=== PATIENT | female | born 1975 | race Hispanic/Latino ===

== ENCOUNTER 2018-01-03 11:23 | Emergency (ER) | payer SELFPAY ==
[2018-01-03 13:56] LABS: Absolute Lymphocytes (CBC) 1.3 K/uL (0.7-4.9); Absolute Monocytes 0.7 K/uL (0.1-1.3); Absolute Neutrophil 11.9 K/uL (1.8-8.0); Basophils % 0.4 % (0-1.3); Eosinophils % 0.8 % (0-4.4); Hematocrit 38.6 % (36.0-45.0); Lymphocytes % 9.5 % (15.3-44.8); MCH 29.7 pg (27.0-35.0); MCV 92.3 fL (80-100); MPV 9.5 fL (7.6-11.3); RBC Red Blood Cell Count 4.19 M/uL (3.86-4.86)
[2018-01-03 14:14] LABS: Urine Bacteria <20 /HPF (<20); Urine Culture Reflex Order NOT NEEDED
[2018-01-03 14:15] LABS: Urine Blood 3+ (NEG); Urine Glucose NEGATIVE (NEG); Urine Protein 1+ (NEG); Urine Specific Gravity 1.015 (1.005-1.030)
[2018-01-03 14:15] LABS: Urine Mucus 1+ /HPF (NONE SEEN)
[2018-01-03 14:41] LABS: Potassium 3.9 mmol/L (3.5-5.1)
--- NOTE | 2018-01-03 17:33 | RAD REPORT ---
EXAM DESCRIPTION: US - Transvaginal OB - 01/03/2018 4:34 pm CLINICAL HISTORY: Vaginal bleeding, possible COMPARISON: None. TECHNIQUE: Endovaginal sonography performed. FINDINGS: Uterus is 10.8 x 5.6 x 6.9 cm. Myometrium is diffusely heterogeneous. A 2.5 centimeter ant erior fundal fibroid is present. An additional anterior fibroid seen 15 mm in size. In the fundal portion of the endometrial cavity there is a small oval hypoechoic or cystic collection . Average diameter would correspond to a 5 week or less intrauterine gestation. Within this structure there is no yolk sac or pole. There is an overall heterogeneity throughout the endometrium alexia pected to be hemorrhagic material. An 18 millimeter thin-walled anechoic right ovarian cyst is present. No suspicious right ovarian or r ight adnexal finding. Left ovary is closely approximated to the uterus. No dominant solid or cystic m ass. IMPRESSION: Small oval fluid collection in the fundal endometrial cavity could be a 5 week 0 day siz ed IUP. No yolk sac or pole identifiable. Overall heterogeneity of the endometrium. This is believed to be hemorrhagic material and this is pro bably places any at-risk. No suspicious ovarian or adnexal finding. Follow-up endovaginal sonography could be performed if beta HCG serial studies show ongoing .
--- NOTE | 2018-01-03 17:39 | EDPHYS ---
Physician Documentation [facility] Name: Bri Bell Age: 42 yrs Sex: Female : 1975 Arrival Date: 01/03/2018 Time: 11:27 Bed 7 Private MD: None, None ED Physician Anshu Cheatham HPI: 01/03 13:50 This 42 yrs old Female presents to ER via Ambulatory with complaints of 5wks pm1 , vaginal bleeding. 13:50 The patient presents with vaginal bleeding that is light, with clots. Onset: The pm1 symptoms/episode began/occurred 2 day(s) ago. Modifying factors: The symptoms are alleviated by nothing, the symptoms are aggravated by using the bathroom, sitting down urinating increases the amount of bleeding. Associated signs and symptoms: Pertinent positives: cramping, Pertinent negatives: dysuria, fever, nausea, vomiting. The patient has not experienced similar symptoms in the past. 13:50 Patient showed me her ultrasound from yesterday that showed IUP without pole or pm1 yolk sac. 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 - Social history:: Smoking status: Patient/guardian denies using tobacco. - Ebola Screening: : Patient negative for fever greater than or equal to 101.5 degrees Fahrenheit, and additional compatible Ebola Virus Disease symptoms Patient denies exposure to infectious person Patient denies travel to an Ebola-affected area in the 21 days before illness onset No symptoms or risks identified at this time. ROS: 13:50 Positive for vaginal bleeding. pm1 13:50 Constitutional: Negative for fever, chills, and weight loss, Eyes: Negative for injury, pain, redness, and discharge, ENT: Negative for injury, pain, and discharge, Neck: Negative for injury, pain, and swelling, Cardiovascular: Negative for chest pain, palpitations, and edema, Respiratory: Negative for shortness of breath, cough, wheezing, and pleuritic chest pain. 13:50 Back: Negative for injury and pain, MS/Extremity: Negative for injury and deformity, Skin: Negative for injury, rash, and discoloration, Neuro: Negative for headache, weakness, numbness, tingling, and seizure. 13:50 Abdomen/GI: Positive for abdominal pain, of the suprapubic area. Exam: 13:50 Constitutional: This is a well developed, well nourished patient who is awake, alert, pm1 and in no acute distress. Head/Face: Normocephalic, atraumatic. Chest/axilla: Normal chest wall appearance and motion. Nontender with no deformity. No lesions are appreciated. Cardiovascular: Regular rate and rhythm with a normal S1 and S2. No gallops, murmurs, or rubs. No pulse deficits. Respiratory: Lungs have equal breath sounds bilaterally, clear to auscultation and percussion. No rales, rhonchi or wheezes noted. No increased work of breathing, no retractions or nasal flaring. Abdomen/GI: Soft, non-tender, with normal bowel sounds. No distension or tympany. No guarding or rebound. No evidence of tenderness throughout. Back: No spinal tenderness. No costovertebral tenderness. Full range of motion. Skin: Warm, dry with normal turgor. Normal color with no rashes, no lesions, and no evidence of cellulitis. MS/ Extremity: Pulses equal, no cyanosis. Neurovascular intact. Full, normal range of motion. 13:50 Neuro: Orientation: is normal, Motor: is normal, moves all fours. Vital Signs: 11:59 BP 102 / 53; Pulse 63; Resp 16; Temp 97.2(TE); Pulse Ox 100% ; Weight 89.81 kg; Height iw 5 ft. 4 in. (162.56 cm); Pain 5/10; 15:17 BP 101 / 54; Pulse 64; Resp 16; Pulse Ox 99% ; jl7 17:30 BP 103 / 52; Pulse 64; Resp 16; Pulse Ox 100% ; jl7 11:59 Body Mass Index 33.99 (89.81 kg, 162.56 cm) iw MDM: 12:42 Patient medically screened. pm1 17:12 Data reviewed: vital signs. Data interpreted: Pulse oximetry: on room air is 99 %. pm1 Interpretation: normal. 17:36 Counseling: I had a detailed discussion with the patient and/or guardian regarding: the pm1 historical points, exam findings, and any diagnostic results supporting the discharge/admit diagnosis, lab results, radiology results, the need for outpatient follow up, to return to the emergency department if symptoms worsen or persist or if there are any questions or concerns that arise at home. 01/03 12:05 Order name: Urine Culture sn 01/03 12:05 Order name: Urine Microscopic Only; Complete Time: 15:38 snw 01/03 12:51 Order name: Quantitative Hcg pm1 01/03 12:51 Order name: Abo/rh Typing pm1 01/03 12:51 Order name: Basic Metabolic Panel 1 01/03 12:51 Order name: CBC with Diff pm1 01/03 12:52 Order name: HCG, Quantitative; Complete Time: 15:38 EDMT 01/03 12:52 Order name: ABO/RH typing; Complete Time: 15:38 EDMS 01/03 12:52 Order name: Basic Metabolic Panel; Complete Time: 15:38 EDMT 01/03 12:52 Order name: CBC with Automated Diff; Complete Time: 15:38 EDMS 01/03 13:09 Order name: Urine Dipstick--Ancillary (enter results); Complete Time: 15:38 bd 01/03 13:09 Order name: Urine --Ancillary (enter results); Complete Time: 15:38 01/03 15:34 Order name: ABO/RH no charge; Complete Time: 15:38 EDMT 01/03 15:38 Order name: US Transvaginal Ob; Complete Time: 17:34 pm1 01/03 12:05 Order name: Urine Test (obtain specimen); Complete Time: 13:53 snw 01/03 12:05 Order name: Urine Dipstick-Ancillary (obtain specimen); Complete Time: 15:11 sn 01/03 12:51 Order name: IV Saline Lock; Complete Time: 13:52 pm1 01/03 12:51 Order name: Labs collected and sent; Complete Time: 13:52 pm1 01/03 12:51 Order name: NPO; Complete Time: 12:59 pm1 Administered Medications: No medications were administered Disposition: 01/04 16:14 Co-signature as Attending Physician, Anshu Cheatham MD I agree with the assessment and deondre plan of care. Disposition: 01/03/18 17:38 Discharged to Home. Impression: Threatened . - Condition is Stable. - Discharge Instructions: Threatened Miscarriage, Pelvic Rest. - Medication Reconciliation Form, Thank You Letter form. - Follow up: Emergency Department; When: As needed; Reason: Worsening of condition. Follow up: Lori Flood MD; When: 2 - 3 days; Reason: Recheck today's complaints, Continuance of care, Re-evaluation by your physician. Follow up: Ella Alexander MD; When: 2 - 3 days; Reason: Recheck today's complaints, Continuance of care, Re-evaluation by your physician. - Problem is new. - Symptoms have improved. Signatures: Dispatcher [employer] EDMS Anshu Cheatham MD MD cha Therrien, Shelly, VISION IMPAIRED TEACHER-C VISION IMPAIRED TEACHER-Csnw Janeth Lozano, RN LORI iw Iam Garcia, ZOILA DIRECTOR FINANCIAL SERVICES pm1 Rebecca Little RN RN jl7 Corrections: (The following items were deleted from the chart) 01/03 17:39 17:38 01/03/2018 17:38 Discharged to Home. Impression: Threatened . Condition pm1 is Stable. Forms are Medication Reconciliation Form, Thank You Letter, Antibiotic Education, Prescription Opioid Use. Follow up: Emergency Department; When: As needed; Reason: Worsening of condition. Follow up: Lori Flood; When: 2 - 3 days; Reason: Recheck today's complaints, Continuance of care, Re-evaluation by your physician. Problem is new. Symptoms have improved. pm1 18:07 17:39 01/03/2018 17:38 Discharged to Home. Impression: Threatened . Condition jl7 is Stable. Forms are Medication Reconciliation Form, Thank You Letter, Antibiotic Education, Prescription Opioid Use. Follow up: Emergency Department; When: As needed; Reason: Worsening of condition. Follow up: Ella Alexander; When: 2 - 3 days; Reason: Recheck today's complaints, Continuance of care, Re-evaluation by your physician. Problem is new. Symptoms have improved. pm1
--- NOTE | 2018-01-03 17:39 | ER ---
Nurse's Notes [facility] Name: Bri Bell Age: 42 yrs Sex: Female : 1975 Arrival Date: 01/03/2018 Time: 11:27 Bed 7 Private MD: None, None Diagnosis: Threatened Presentation: 01/03 11:55 Presenting complaint: Patient states: 5-7 weeks , vaginal bleeding started iw Thursday, had US done at clinic yesterday that showed embryo has not grown since previous US, bleeding increased and cramping started today. Transition of care: patient was not received from another setting of care. Onset of symptoms was January 03, 2018. Risk Assessment: Do you want to hurt yourself or someone else? Patient reports no desire to harm self or others. Initial Sepsis Screen: Does the patient meet any 2 criteria? No. Patient's initial sepsis screen is negative. Does the patient have a suspected source of infection? No. Patient's initial sepsis screen is negative. Care prior to arrival: None. 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 - Social history:: Smoking status: Patient/guardian denies using tobacco. - Ebola Screening: : Patient negative for fever greater than or equal to 101.5 degrees Fahrenheit, and additional compatible Ebola Virus Disease symptoms Patient denies exposure to infectious person Patient denies travel to an Ebola-affected area in the 21 days before illness onset No symptoms or risks identified at this time. Screenin:17 Abuse screen: Denies threats or abuse. Denies injuries from another. Nutritional jl7 screening: No deficits noted. Tuberculosis screening: No symptoms or risk factors identified. Fall Risk IV access (20 points). Total Cota Fall Scale indicates No Risk (0-24 pts). Assessment: 13:30 General: Appears in no apparent distress. uncomfortable, Behavior is calm, cooperative, jl7 appropriate for age. Pain: Complains of pain in right lower quadrant and left lower quadrant Pain does not radiate. Pain currently is 1 out of 10 on a pain scale. at worst was 10 out of 10 on a pain scale. Quality of pain is described as crampy, Pain began 1 day ago. Is intermittent. Neuro: Level of Consciousness is awake, alert, obeys commands, Oriented to person, place, time, situation. Cardiovascular: Patient's skin is warm and dry. Respiratory: Airway is patent Respiratory effort is even, unlabored, Respiratory pattern is regular, symmetrical. GI: Bowel sounds present X 4 quads. Abd is soft X 4 quads Abdomen is tender to palpation in right lower quadrant and left lower quadrant. : No signs and/or symptoms were reported regarding the genitourinary system. EENT: No signs and/or symptoms were reported regarding the EENT system. Derm: Skin is pink, warm \T\ dry. Musculoskeletal: No signs and/or symptoms reported regarding the musculoskeletal system. 14:30 Reassessment: No changes from previously documented assessment. Patient and/or family jl7 updated on plan of care and expected duration. Pain level reassessed. Patient is alert, oriented x 3, equal unlabored respirations, skin warm/dry/pink. 15:30 Reassessment: Patient and/or family updated on plan of care and expected duration. Pain jl7 level reassessed. Patient is alert, oriented x 3, equal unlabored respirations, skin warm/dry/pink. 16:30 Reassessment: Patient and/or family updated on plan of care and expected duration. Pain jl7 level reassessed. Patient is alert, oriented x 3, equal unlabored respirations, skin warm/dry/pink. 17:30 Reassessment: Patient and/or family updated on plan of care and expected duration. Pain jl7 level reassessed. Patient is alert, oriented x 3, equal unlabored respirations, skin warm/dry/pink. Vital Signs: 11:59 BP 102 / 53; Pulse 63; Resp 16; Temp 97.2(TE); Pulse Ox 100% ; Weight 89.81 kg; Height iw 5 ft. 4 in. (162.56 cm); Pain 5/10; 15:17 BP 101 / 54; Pulse 64; Resp 16; Pulse Ox 99% ; jl7 17:30 BP 103 / 52; Pulse 64; Resp 16; Pulse Ox 100% ; jl7 11:59 Body Mass Index 33.99 (89.81 kg, 162.56 cm) ED Course: 11:27 Patient arrived in ED. mr 11:27 None, None is Private Physician. mr 11:58 Triage completed. iw 11:59 Arm band placed on. iw 12:22 Rebecca Little, LORI is Primary Nurse. jl7 12:41 Iam Garcia NP is PHCP. pm1 12:41 Anshu Cheatham MD is Attending Physician. pm1 13:51 Urine collected: clean catch specimen, clear. Initial lab(s) drawn, by wa, sent to lab. ag Inserted saline lock: 20 gauge in right antecubital area, using aseptic technique. 13:53 Quantitative Hcg Sent. ag 13:53 Abo/rh Typing Sent. ag 13:53 Basic Metabolic Panel Sent. ag 13:53 CBC with Diff Sent. ag 13:53 Urine Culture Sent. ag 13:53 Urine Microscopic Only Sent. ag 13:53 Urine --Ancillary (enter results) Sent. ag 13:53 Urine Dipstick--Ancillary (enter results) Sent. ag 13:53 CBC with Automated Diff Sent. ag 13:53 Basic Metabolic Panel Sent. ag 13:54 HCG, Quantitative Sent. ag 13:54 ABO/RH typing Sent. ag 15:17 Patient has correct armband on for positive identification. Bed in low position. Call jl7 light in reach. Side rails up X 1. Pulse ox on. NIBP on. 16:27 Ultrasound completed. Patient tolerated well. sg3 16:35 US Transvaginal Ob In Process Unspecified. EDMS 17:30 No provider procedures requiring assistance completed. IV discontinued, intact, jl7 bleeding controlled, No redness/swelling at site. Pressure dressing applied. 17:38 Lori Flood MD is Referral Physician. pm1 17:38 Referral Physician role handed off by Lori Flood MD pm1 17:38 Ella Alexander MD is Referral Physician. pm1 Administered Medications: No medications were administered Outcome: 17:38 Discharge ordered by MD. pm1 18:07 Discharged to home ambulatory. jl7 18:07 Condition: stable 18:07 Discharge instructions given to patient, family, Instructed on discharge instructions, follow up and referral plans. Demonstrated understanding of instructions, follow-up care. 18:07 Patient left the ED. jl7 Signatures: Dispatcher [employer] Amber Farias Irene, RN Maggy Johansen Patrick, ZOILA RECONDITIONING ASSOCIATE pm1 Rebecca Little RN RN jl7 Palak Aponte sg3
== END 2018-01-03 18:07 | disposition home or self-care (01) ==
LOC: ER 11:23
DX: O20.0 Threatened abortion (principal); Z3A.01 Less than 8 weeks gestation of pregnancy
CPT/HCPCS: 36415; 76817; 80048; 81003; 81015; 81025; 84702; 85025; 86900; 86901; 87086; 87088; 99284